=== PATIENT | male | born 1940 | race Caucasian/White ===

== ENCOUNTER → 2018-02-06 | Outpatient (CLI) | payer MEDICARE | END | disposition home or self-care (01) | LOC: RAH 15:40 | PROVIDERS: ATTEND Physical Medicine & Rehabilitation | DX: M51.36 Other intervertebral disc degeneration, lumbar region (principal); M48.8X6 Other specified spondylopathies, lumbar region; I10 Essential (primary) hypertension; E11.9 Type 2 diabetes mellitus without complications; J44.9 Chronic obstructive pulmonary disease, unspecified | CPT/HCPCS: 72114 ==

== ENCOUNTER → 2019-03-20 | Outpatient (CLI) | payer MEDICARE | END | disposition home or self-care (01) | LOC: RAH 12:28 | PROVIDERS: ATTEND Physical Medicine & Rehabilitation | DX: I73.9 Peripheral vascular disease, unspecified (principal) | CPT/HCPCS: 93925 ==

== ENCOUNTER 2019-06-13 11:04 | Emergency (ER) | payer MEDICARE ==
[2019-06-13] MEDS ORDERED: ASPIRIN 325 MG TABLET ONE (11:33)
[2019-06-13 11:38] LABS: BASOPHILS % (AUTO) 0.6 % (0.0-5.0); EOSINOPHILS % (AUTO) 4.3 % (0.0-8.0); HEMATOCRIT 41.2 % (42-54); LYMPHOCYTES % (AUTO) 21.5 % (21.0-51.0); MEAN CORPUSCULAR HEMOGLOBIN 30.2 pg (27.0-33.0); MEAN CORPUSCULAR HGB CONC 33.6 g/dL (32.0-36.0); MEAN CORPUSCULAR VOLUME 89.7 fL (79-99); MONOCYTES % (AUTO) 7.8 % (3.0-13.0); NEUTROPHILS % (AUTO) 65.8 % (40.0-77.0); PLATELET COUNT (AUTO) 215 K/uL (130-400); RED BLOOD CELL COUNT(AUTO) 4.59 MIL/uL (4.50-6.20); RED CELL DISTRIBUTION WIDTH 14.3 % (11.0-15.5); WHITE BLOOD COUNT (AUTO) 8.4 K/uL (4.8-10.8)
[2019-06-13 12:07] LABS: CREATININE 1.1 mg/dL (0.5-1.5); POTASSIUM 3.7 mmol/L (3.5-5.1)
[2019-06-13 12:09] LABS: INR 1.01 (0.85-1.15); PROTHROMBIN TIME 10.6 SEC (9.6-11.6)
[2019-06-13 12:15] LABS: ALBUMIN 3.8 g/dL (3.5-5.0); BILIRUBIN,TOTAL 0.3 mg/dL (0.2-1.0); TOTAL PROTEIN, SERUM 7.3 g/dL (6.0-8.3)
[2019-06-13 12:31] LABS: B-TYPE NATRIURETIC PEPTIDE 166 pg/mL (0-100)
== END 2019-06-13 15:03 | disposition home or self-care (01) ==
LOC: EDH 11:04
DX: R42 Dizziness and giddiness (principal); R00.1 Bradycardia, unspecified; I10 Essential (primary) hypertension; J44.9 Chronic obstructive pulmonary disease, unspecified; E11.9 Type 2 diabetes mellitus without complications; M19.90 Unspecified osteoarthritis, unspecified site; F32.9 Major depressive disorder, single episode, unspecified; Z98.890 Other specified postprocedural states; Z79.4 Long term (current) use of insulin; Z88.0 Allergy status to penicillin; Z88.5 Allergy status to narcotic agent; Z91.030 Bee allergy status
CPT/HCPCS: 36415; 71045; 80053; 82550; 83880; 84484; 85025; 85610; 85730; 93005

== ENCOUNTER → 2019-06-24 | Outpatient (CLI) | payer MEDICARE | END | disposition home or self-care (01) | LOC: SHCH 09:25 | PROVIDERS: ATTEND Internal Medicine Cardiovascular Disease | DX: I11.9 Hypertensive heart disease without heart failure (principal); I08.1 Rheumatic disorders of both mitral and tricuspid valves | CPT/HCPCS: 93306 ==

== ENCOUNTER 2019-08-22 11:03 | Emergency (ER) | payer MEDICARE ==
[2019-08-22 11:47] LABS: APPEARANCE,URINE Clear (CLEAR); BILIRUBIN,URINE Negative (NEGATIVE); COLOR,URINE Yellow (YELLOW); GLUCOSE, URINE (UA) Negative (NEGATIVE); KETONES,URINE Negative (NEGATIVE); LEUKOCYTE ESTERASE ,URINE Negative (NEGATIVE); NITRATE,URINE Negative (NEGATIVE); OCCULT BLOOD,URINE Negative (NEGATIVE); PROTEIN,URINE Negative (NEGATIVE); UROBILINOGEN,URINE 0.2 mg/dL (0.2-1.0)
[2019-08-22 12:01] LABS: BASOPHILS % (AUTO) 1.1 % (0.0-5.0); EOSINOPHILS % (AUTO) 4.7 % (0.0-8.0); HEMATOCRIT 42.2 % (42-54); LYMPHOCYTES % (AUTO) 22.7 % (21.0-51.0); MEAN CORPUSCULAR HEMOGLOBIN 30.1 pg (27.0-33.0); MEAN CORPUSCULAR HGB CONC 34.2 g/dL (32.0-36.0); MEAN CORPUSCULAR VOLUME 87.9 fL (79-99); MONOCYTES % (AUTO) 7.3 % (3.0-13.0); NEUTROPHILS % (AUTO) 64.2 % (40.0-77.0); NUCLEATED RED BLOOD CELLS 0.1 % (0.0-0.19); PLATELET COUNT (AUTO) 244 K/uL (130-400); RED CELL DISTRIBUTION WIDTH 13.9 % (11.0-15.5); WHITE BLOOD COUNT (AUTO) 7.2 K/uL (4.8-10.8)
[2019-08-22] MEDS ORDERED: LIDOCAINE 5% TOPICAL PATCH TP ONE (12:05)
[2019-08-22 12:10] LABS: CREATININE 0.9 mg/dL (0.5-1.5); POTASSIUM 4.1 mmol/L (3.5-5.1)
[2019-08-22 12:14] LABS: ALBUMIN 3.8 g/dL (3.5-5.0); BILIRUBIN,DIRECT 0.1 mg/dL (0.0-0.3); BILIRUBIN,TOTAL 0.4 mg/dL (0.2-1.0); TOTAL PROTEIN, SERUM 7.5 g/dL (6.0-8.3)
[2019-08-22 12:23] LABS: INR 0.97 (0.85-1.15); PARTIAL THROMBOPLASTIN TIME 29.6 SEC (26.3-35.5); PROTHROMBIN TIME 10.2 SEC (9.6-11.6)
== END 2019-08-22 15:23 | disposition home or self-care (01) ==
LOC: EDH 11:03
DX: M54.5 Low back pain (principal); F32.9 Major depressive disorder, single episode, unspecified; E11.9 Type 2 diabetes mellitus without complications; I10 Essential (primary) hypertension; F43.12 Post-traumatic stress disorder, chronic; Z88.0 Allergy status to penicillin; Z88.5 Allergy status to narcotic agent; Z91.030 Bee allergy status
CPT/HCPCS: 36415; 74176; 80048; 80076; 81003; 83690; 85025; 85610; 85730

== ENCOUNTER → 2019-09-03 | Outpatient (CLI) | payer MEDICARE ==
[~2019-09-03] MED LIST: GADODIAMIDE 10 MMOL/20 ML VIAL IV ONE
== END | disposition home or self-care (01) ==
LOC: RAH 10:47
PROVIDERS: ATTEND Internal Medicine Nephrology
DX: R22.2 Localized swelling, mass and lump, trunk (principal)
CPT/HCPCS: 72197; A9579

== ENCOUNTER → 2019-09-09 | Outpatient (CLI) | payer MEDICARE | END | disposition home or self-care (01) | LOC: RAH 13:50 | PROVIDERS: ATTEND Internal Medicine Nephrology | DX: R22.41 Localized swelling, mass and lump, right lower limb (principal); Z96.659 Presence of unspecified artificial knee joint | CPT/HCPCS: 76882 ==

== ENCOUNTER → 2019-10-16 | Outpatient (CLI) | payer MEDICARE | END | disposition home or self-care (01) | LOC: SLP 20:07 | PROVIDERS: ATTEND Internal Medicine | DX: G47.33 Obstructive sleep apnea (adult) (pediatric) (principal); I10 Essential (primary) hypertension; E66.9 Obesity, unspecified; Z68.37 Body mass index [BMI] 37.0-37.9, adult | CPT/HCPCS: 95810; 95811 ==

== ENCOUNTER → 2020-06-02 | Outpatient (CLI) | payer MEDICARE ==
[~2020-06-02] MED LIST changes: +ADV250 IH; +AEC81 PO; +AMLO10TA7 PO; +BENZ-39 PO; +BRIM2.5D OD; +BUDE0.5A3 IH; +FLUO20CA35 PO; +FURO40TA5 PO; -GADODIAMIDE 10 MMOL/20 ML VIAL IV ONE; +HYDR-4153 PO; +INSU200I4 SQ; +IPRA3AMP24 IH; +KETO5DRO82 OS; +LISI40TA4 PO; +MULT-1289 PO; +OMEP20CA12 PO; +PREG150C46 PO; +SIMV10TA97 PO; +TAMS-1 PO; +TIOT18CA3 IH; +TRAM50TA4 PO; +TRAZ-187 PO; +VIT1CAPS47 PO; +[UNRECOGNIZED DRUG - CODE] TP
== END | disposition home or self-care (01) ==
LOC: RAH 12:19
PROVIDERS: ATTEND Physical Medicine & Rehabilitation
DX: M51.17 Intervertebral disc disorders with radiculopathy, lumbosacral region (principal); M48.061 Spinal stenosis, lumbar region without neurogenic claudication
CPT/HCPCS: 72148

== ENCOUNTER → 2021-05-20 | Outpatient (CLI) | payer MEDICARE ==
[~2021-05-20] MED LIST changes: +AMLO-258 PO; -AMLO10TA7 PO; -LISI40TA4 PO; +LISI40TA9 PO
== END | disposition home or self-care (01) ==
LOC: SHCH 12:53
PROVIDERS: ATTEND Internal Medicine Cardiovascular Disease
DX: I73.9 Peripheral vascular disease, unspecified (principal)
CPT/HCPCS: 93925

== ENCOUNTER → 2021-11-24 | Outpatient (CLI) | payer MEDICARE ==
[~2021-11-24] MED LIST changes: -FLUO20CA35 PO; +FLUO20CA36 PO
== END | disposition home or self-care (01) ==
LOC: RAH 13:16
PROVIDERS: ATTEND Physical Medicine & Rehabilitation
DX: M79.605 Pain in left leg (principal); M79.89 Other specified soft tissue disorders; Z88.6 Allergy status to analgesic agent; Z88.0 Allergy status to penicillin
CPT/HCPCS: 93971